=== PATIENT | male | born 1975 | race Caucasian/White ===

== ENCOUNTER 2017-07-01 10:27 | Emergency (ER) | payer BC ==
--- NOTE | 2017-07-01 11:21 | EDM.PDOC ---
ED HPI GENERAL MEDICAL PROBLEM - General Chief Complaint: Respiratory Problem Stated Complaint: [id number] Pneumonia CONGESTION LIGHT HEADED FEVER Time Seen by Provider: 07/01/17 11:10 Source of Information: Reports: Patient, Family, RN, RN Notes Reviewed History Limitations: Reports: No Limitations - History of Present Illness INITIAL COMMENTS - FREE TEXT/NARRATIVE: Pt presents to the ER with c/o fever, light headedness, and congestion. He states symptoms initially began about 8 days ago. He states over the past 3-4 days symptoms have been worsening including the fever. He states he has had pneumonia twice in the past 5 years. He states he has had a non-productive cough. Denies sore throat, N/V/D. Onset: Gradual Onset Date: 06/23/17 Duration: Getting Worse Location: Reports: Head, Face Severity: Moderate Improves with: Reports: None Worsens with: Reports: None Associated Symptoms: Reports: Cough, Fever/Chills, Headaches, Weakness - Related Data Allergies Allergy/AdvReac Type Severity Reaction Status Date / Time No Known Allergies Allergy Verified 07/01/17 10:54 Home Meds: Home Meds Ranitidine HCl [Zantac 75] 75 mg PO DAILY 07/01/17 [History] Past Medical History - Past Surgical History HEENT Surgical History: Reports: Other (See Below) Other HEENT Surgeries/Procedures: teeth surgery Social & Family History - Tobacco Use Smoking Status *Q: Never Smoker - Caffeine Use Caffeine Use: Reports: Coffee, Soda - Alcohol Use Days Per Week of Alcohol Use: 3 Number of Drinks Per Day: 2 Total Drinks Per Week: 6 - Recreational Drug Use Recreational Drug Use: No ED ROS GENERAL - Review of Systems Review Of Systems: ROS reveals no pertinent complaints other than HPI. ED EXAM, GENERAL - Physical Exam Exam: See Below Exam Limited By: No Limitations General Appearance: Alert, WD/WN, Mild Distress Eye Exam: Bilateral Eye: EOMI, Normal Inspection Ears: Normal External Exam, Hearing Grossly Normal Ear Exam: Bilateral Ear: TM Dull Nose: Nasal Swelling, Other (bilateral injected turbinates) Throat/Mouth: Normal Teeth, Normal Voice, No Airway Compromise, Other ( oropharynx erythematous) Head: Atraumatic, Normocephalic Neck: Normal Inspection, Supple, Non-Tender, Full Range of Motion Respiratory/Chest: No Respiratory Distress, Lungs Clear, No Accessory Muscle Use , Chest Non-Tender, Decreased Breath Sounds Cardiovascular: Normal Peripheral Pulses, Regular Rate, Rhythm, No Edema, No Gallop, No JVD, No Murmur, No Rub Peripheral Pulses: 2+: Radial (L), Radial (R) GI/Abdominal: Normal Bowel Sounds, Soft, Non-Tender, No Organomegaly, No Distention, No Abnormal Bruit, No Mass (Male) Exam: Deferred Rectal (Males) Exam: Deferred Back Exam: Normal Inspection, Full Range of Motion, NT Extremities: Normal Inspection, Normal Range of Motion, Non-Tender, Normal Capillary Refill, No Pedal Edema Neurological: Alert, Oriented, CN II-XII Intact, Normal Cognition, Normal Gait, Normal Reflexes, No Motor/Sensory Deficits Psychiatric: Normal Affect, Normal Mood Skin Exam: Warm, Dry, Intact, Normal Color, No Rash Lymphatic: No Adenopathy Course - Vital Signs Last Recorded V/S: Last Vital Signs Temp 98 F 07/01/17 10:48 Pulse 93 07/01/17 10:48 Resp 16 07/01/17 10:48 BP 133/74 07/01/17 10:48 Pulse Ox 98 07/01/17 10:48 Departure - Departure Time of Disposition: 11:20 Disposition: Home, Self-Care 01 Condition: Fair Clinical Impression: Acute sinusitis Qualifiers: Sinusitis location: unspecified location Recurrence: not specified as recurrent Qualified Code(s): J01.90 - Acute sinusitis, unspecified - Discharge Information Instructions: Upper Respiratory Infection, Adult, [id number] Forms: ED Department Discharge Additional Instructions: RX: Amoxicillin, Flonase, Prednisone Drink plenty of fluids Follow up with your primary care facility next week if no improvement
== END 2017-07-01 11:50 | disposition home or self-care (01) ==
LOC: DL.ED 10:27
DX: J01.90 Acute sinusitis, unspecified (principal)
CPT/HCPCS: 99284